=== PATIENT | male | born 1980 | race Caucasian/White ===

== ENCOUNTER 2025-04-25 19:44 | Emergency (ER) | payer OTHER, SELFPAY ==
[2025-04-25 19:47] VITALS: BP 155/91
--- NOTE | 2025-04-25 23:02 | ED.SKININJ ---
HPI-Injury
General
Chief Complaint: Bite
Time Seen by Provider: 04/25/25 22:09
History of Present Illness-Injury
Initial Injury comments:
45-year-old male without significant past medical history presenting for persistent circumferential area of swelling and redness to the right shoulder. Patient reports he noticed the swelling 4 days ago. He saw some central raising, thought maybe
it was secondary to a bug bite. The following day, started to have headache, fever and feeling generally unwell. Also notes body aches. Has previously had Lyme disease in the past. Went to urgent care, Lyme test sent and patient started on
doxycycline. He notes overall he is starting to feel slightly better, however the redness to the area on his shoulder is extending slightly. Denies chest pain or difficulty breathing. Last dose of Tylenol was this morning. Denies additional
acute medical complaints
Phy Exam
Physical Exam
Physical Exam:
General: Well-appearing, no clinical signs of dehydration, nontoxic and in no acute distress
HEENT: protecting airway
Neck: appears supple
CV: Normal heart rate, regular rhythm
Resp: No accessory muscle use, no increased work of breathing, lungs clear to auscultation bilaterally
Abd: No distention
Extremities: No deformities, no swelling, no systemic rash
Neuro: alert, no focal neurologic deficit
: deferred
Rectal: deferred
Psych: Normal affect
Skin: 6 cm circumferential and raised area of redness at the superior portion of the right shoulder. No fluctuance. Nontender.
Course
Orders/Labs/Results
Orders:
Orders
04/25/25 23:02
Cephalexin Monohydrate [Keflex] 500 mg PO NOW STA
Vital Signs
Initial and Last Documented VS:
Initial Vital Signs
Temp Pulse Resp BP Pulse Ox
98.6 F 93 18 155/91 97
04/25/25 19:47 04/25/25 19:47 04/25/25 19:47 04/25/25 19:47 04/25/25 19:47
Last Documented Vital Signs
Temp Pulse Resp BP Pulse Ox
98.6 F 93 18 155/91 97
04/25/25 19:47 04/25/25 19:47 04/25/25 19:47 04/25/25 19:47 04/25/25 19:47
MDM/Problems Addressed
MDM/Problems Addressed:
45-year-old male presenting for right shoulder rash with fever, body aches, headache. Vital signs on arrival are significant for mild hypertension.
On exam patient is resting comfortably, no acute distress or discomfort. Patient is afebrile, nontoxic. Last dose of antipyretic was at 10 AM this morning. No meningismus or nuchal rigidity without severe [employer] infection. Patient's area of rash
appears to be localized to the right shoulder, clearly demarcated, circumferential area of erythema. No fluctuance or drainable collection. Patient does report some systemic symptoms including fever, body aches, headache. Do suspect acute
infection. Lyme disease being the most likely given endemic region. Lyme test already sent. However, redness to the right shoulder does appear to be extending slightly beyond the area demarcated by urgent care yesterday. He notes that his
systemic symptoms are somewhat improving. For this reason do not want to discontinue doxycycline for the risk of leaving Lyme disease untreated. Will add on cephalexin for the cellulitic component to the rash. Feel stable for discharge. Strict
return precautions communicated to patient verbalized understanding
*Pulse Oximetry
SaO2: 97
*Critical Care Note
Total Time (30-74mins, 75-104mins- exclusive of procedures): Not Applicable
ED Attending Note
-
Portions of this chart may have been created with voice recognition software.� Occasional wrong word or��sound alike� substitutions may have occurred due to the inherent limitations of voice recognition software.
Discharge Plan
Departure
Patient Disposition: Home (Routine Discharge)
Date of Disposition: 04/25/25
Time of Disposition: 23:09
Patient with high blood pressure during this ER visit?: Yes
Condition: Good
Discharge Problem:
Cellulitis, Bite from insect
Instructions: Cellulitis (Skin Infection), Child (DC), Insect Bites and Stings (DC), BLOOD PRESSURE
Prescriptions:
New
cephalexin 500 mg capsule
500 mg PO QID 7 Days Qty: 28 0RF
Referrals:
UNKNOWN - PT DOES,NOT KNOW [Family Provider]
Activity Restrictions/Additional Instructions:
You were seen in the emergency department for suspected bite to your right arm with subsequent rash and swelling
You were found to have cellulitis to the right shoulder and you were started on cephalexin, in addition to the doxycycline that you are already on. Please continue the doxycycline, particularly until you hear from urgent care regarding the results
of your Lyme titer.
Please follow-up closely with your primary care physician.
Return to the emergency department for any worsening of your symptoms, or any development of chest pain, difficulty breathing, abdominal pain with persistent vomiting and inability to tolerate food or liquid by mouth (concern for dehydration),
weakness, headache or confusion, fever greater than 100.4, or any additional symptoms that are concerning to you.
Thank you for choosing [facility].
Interventions
Interventions:
*Risk Screen - Suicide Last Done: 04/25/25 19:50
*General Assessment Last Done: 04/25/25 19:50
*Neglect/Abuse Screening Last Done: 04/25/25 19:50
*ED COVID-19 Vaccine History Last Done: 04/25/25 19:50
Discharge Date and Time
Print Language: CONGOLESE
[2025-04-25] MEDS: KEFLEX 500 MG PO (23:19)
[2025-04-25 23:24] VITALS: BP 121/82
== END 2025-04-25 23:25 | disposition home or self-care (01) ==
LOC: EMR 19:44
PROVIDERS: EMERGENCY PHYSICIAN Student in an Organized Health Care Education/Training Program
DX: L03.113 Cellulitis of right upper limb (principal); R51.9 Headache, unspecified; M79.10 Myalgia, unspecified site; W57.XXXA Bitten or stung by nonvenomous insect and other nonvenomous arthropods, initial encounter; Z88.1 Allergy status to other antibiotic agents
CPT/HCPCS: 99283